=== PATIENT | female | born 1975 | race African-American/Black ===

== ENCOUNTER 2020-12-22 10:59 | Emergency (ER) | payer MEDICARE, SELFPAY ==
[2020-12-22] VITALS (14 sets, daily range): BP systolic 121–143; BP diastolic 74–103; PULSE 62–97; RESP 9–20; TEMP 36.4; O2SAT 98–100
--- NOTE | ~2020-12-22 | XR_ITS ---
EXAMINATION: XR chest 2V EXAM DATE: 12/22/2020 11:23 INDICATION: Chest pain . TECHNIQUE: Frontal and lateral projections of the chest obtained and reviewed. There is no prior issac dy for comparison. FINDINGS: The lungs are clear. There are no pleural effusions. The cardiomediastinal silhouette is within normal limits. There is no pneumothorax suspected. The bones and soft tissues are unremarkab le. IMPRESSION: No acute cardiopulmonary findings. Reviewed, dictated and finalized at location B.
--- NOTE | 2020-12-22 11:05 | ECG_ITS ---
Measurements Intervals [place] Rate: 71 P: 23 IN: 195 QRS: -8 QRSD: 85 T: -2 QT: 393 QTc: 428 Interpretive Statements SINUS RHYTHM VOLTAGE CRITERIA FOR LVH MINIMAL Q WAVES- HIGH LATERAL LEADS BORDERLINE T WAVE ABNORMALITY- ANT/INF LEADS BORDERLINE ECG Electronically Signed On 12-22-2020 11:24:51 CDT by Aryan Man D.O.
[2020-12-22 11:24] LABS: Basophils Absolute Auto 0.1 K/mm3 (0.0-0.1); Basophils Percent Auto 0.9 % (0.2-1.2); Eosinophils Absolute Auto 0.2 K/mm3 (0-0.3); Eosinophils Percent Auto 3.6 % (0-4.4); Hemoglobin 9.4 g/dL (12.0-15.0); Immature Granulocyte Absolute 0.04 K/mm3 (0.00-0.031); Immature Granulocyte Percent A 0.7 % (0-0.5); Lymphocytes Absolute Auto 1.79 K/mm3 (0.9-3.2); Mean Corpuscular HGB Conc 30.3 g/dl (32-36); Mean Corpuscular Hemoglobin 20.6 pg (26-34); Monocytes Absolute Auto 0.5 K/mm3 (0.1-0.6); Monocytes Percent Auto 8.8 % (2.6-8.5); Platelet Count Result 395 k/mm3 (150-375); Red Blood Count 4.56 M/mm3 (4.2-5.4); Red Cell Distribution Width 16.2 % (11.5-14.5); White Blood Count 5.6 K/mm3 (4.5-10.0)
--- NOTE | 2020-12-22 11:31 | ED.GENADULT ---
HPI - General Adult General Chief complaint: Chest Pain Stated complaint: CP Time Seen by Provider: 12/22/20 11:30 Source: patient Mode of arrival: ambulatory Limitations: no limitations History of Present Illness HPI narrative: Patient has had been having left sided chest pain for 2 weeks. She is states that it does occasionally travel into her left shoulder and may be her jaw. She is also having quite a bit of congestion and sore throat that started approximately 5 days ago. She also received her second Covid vaccine in around the same time. She has had fever up to 101 last night, treated with Tylenol. She just feels short of breath with some chest tightness. There is family history in both parents and and both sisters of early onset cardiac disease. Onset (ago): week(s) Location: chest Severity: mild Quality: aching Pain Consistency: intermittent Relieving factors: none Exacerbating factors: none Related Data Home Medications Medication Instructions Recorded Confirmed No Home Medications 12/22/20 12/22/20 Allergies Allergy/AdvReac Type Severity Reaction Status Date / Time levofloxacin [From Levaquin] Allergy Unknown Verified 12/22/20 11:30 Penicillins Allergy Unknown Verified 12/22/20 11:30 Review of Systems Review of Systems: All systems reviewed & are unremarkable except as noted in HPI and below [facility] Family History Family History (Updated 12/22/20 @ 12:13 by Sophie Santos PA-C) Mother Heart disease Father Heart disease Sibling Heart disease Social History Social History (Updated 12/22/20 @ 12:14 by Sophie Santos PA-C) Smoking status: Never smoker Alcohol intake: never Substance use: never Living arrangements: with family Occupation/Education: occupation Additional occupation/education comments: [employer] Exam Const: General: no acute distress and alert Orientation/consciousness: patient oriented x3 HENMT: Head: normal to inspection Ears: TM's normal bilaterally Face and sinus: sinus tenderness Mouth: Yes Normal oral and palatal mucosa present Throat: other (mild erytherma post pharynx) Eyes: Pupils: Equal, round and reactive pupils present Chest: Chest palpation & inspection: normal inspection of the chest and tenderness pectoral muscle on the left Resp: Effort & Inspection: normal respiratory effort Auscultation: clear to auscultation bilaterally Cardio: Rate: regular rate Rhythm: regular rhythm Skin: General skin exam: normal color Extrem: General: normal to inspection Psych: Mental Status: mental status grossly normal Course Course Emergency Course: Patient feels much better after inhaler. Will discharge with same after Covid results. Vital Signs Vital signs: Vital Signs Temperature 36.4 C L 12/22/20 11:05 Pulse Rate 97 12/22/20 11:05 Respiratory Rate 18 12/22/20 11:05 Blood Pressure 138/84 12/22/20 11:05 Pulse Oximetry 98 12/22/20 11:05 Temperature 36.4 C L 12/22/20 11:05 Pulse Rate 79 12/22/20 13:02 Respiratory Rate 16 12/22/20 13:02 Blood Pressure 132/78 12/22/20 13:02 Pulse Oximetry 99 12/22/20 12:01 Medical Decision Making Vital Signs Vital Signs: Vital Signs Temperature 36.4 C L 12/22/20 11:05 Pulse Rate 97 12/22/20 11:05 Respiratory Rate 18 12/22/20 11:05 Blood Pressure 138/84 12/22/20 11:05 Pulse Oximetry 98 12/22/20 11:05 Temperature 36.4 C L 12/22/20 11:05 Pulse Rate 79 12/22/20 13:02 Respiratory Rate 16 12/22/20 13:02 Blood Pressure 132/78 12/22/20 13:02 Pulse Oximetry 99 12/22/20 12:01 Lab Data Result diagrams: 12/22/20 11:13 12/22/20 11:13 Labs: Lab Results 12/22/20 12/22/20 12/22/20 Range/Units 11:13 11:13 11:13 WBC 5.6 (4.5-10.0) K/mm3 RBC 4.56 (4.2-5.4) M/mm3 Hgb 9.4 L (12.0-15.0) g/dL Hct 31.0 L (37.0-47.0) % MCV 68.0 L (80-100) fl MCH 20.6 L (26-34) pg MCHC 30.3 L
[2020-12-22 11:37] LABS: INR 0.9
[2020-12-22 11:38] LABS: Partial Thromboplastin Time 27.2 SECONDS (22.3-36.8)
[2020-12-22 11:49] LABS: Anion Gap 4 mmol/L (8-16); Blood Urea Nitrogen 6 mg/dL (7-17); Calcium 8.5 mg/dL (8.4-10.2); Carbon Dioxide 22 mmol/L (22-30); Chloride 111 mmol/L (98-107); Estimated CRCL calculation 128 ml/min; Estimated Glomerular Filt Rate > 60; Glucose 84 mg/dL (65-110); Sodium 137 mmol/L (137-145)
[2020-12-22 12:01] LABS: Troponin I < 0.012 ng/mL (0.000-0.034)
[2020-12-22] MEDS: ALBUTEROL SULFATE (*SP) AEROSOL 1 PUFF 4 PUFF INHALATION (12:30)
[2020-12-22] MEDS: ALBUTEROL SULFATE (*SP) INHALER 1 PUFF (12:30)
[2020-12-22 13:54] LABS: EDCOVIDSCREEN Negative (Negative)
[2020-12-22 15:04] LABS: Troponin I < 0.012 ng/mL (0.000-0.034)
== END 2020-12-22 14:33 | disposition home or self-care (01) ==
PROVIDERS: Physician Assistant; Emergency Provider Emergency Medicine
DX: R07.89 Other chest pain (principal); J06.9 Acute upper respiratory infection, unspecified; R94.31 Abnormal electrocardiogram [ECG] [EKG]; Z20.822 Contact with and (suspected) exposure to COVID-19
CPT/HCPCS: 36415; 71046; 80048; 84484; 85025; 85610; 85730; 87426; 93005; 99284; A9270; C9803